=== PATIENT | male | born 2000 | race Caucasian/White ===

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

== ENCOUNTER 2023-01-24 13:42 | Emergency (ER) | payer OTHER ==
[2023-01-24 13:52] VITALS: BP 100/47; PULSE 68; RESP 17; TEMP 98.3; BMI 25.8
[2023-01-24] MEDS ORDERED: IBUPROFEN 600 MG TABLET (FP) PO ONE ×2 (15:00→15:25)
== END 2023-01-24 16:27 | disposition home or self-care (01) ==
LOC: JERFT 13:42
DX: M25.531 Pain in right wrist (principal)
CPT/HCPCS: 73110-TC-RT-FY; 99283-25